=== PATIENT | male | born 1960 | race Caucasian/White ===

== ENCOUNTER 2019-02-27 21:59 | Emergency (ER) | payer MEDICAID ==
[~2019-02-27] VITALS: Ht 170.2 cm; Wt 68.9 kg
[2019-02-27 22:01] VITALS: BP 146/109; Ht 170.2 cm; Wt 68.9 kg
== END 2019-02-27 22:46 | disposition home or self-care (01) ==
LOC: ED 21:59
DX: K40.90 Unilateral inguinal hernia, without obstruction or gangrene, not specified as recurrent (principal)